=== PATIENT | female | born 2000 | race Two or more races ===

== ENCOUNTER 2025-07-06 22:54 | Emergency (ER) | payer MEDICAID, SELFPAY ==
[2025-07-06 22:57] VITALS: BMI 33.6
[2025-07-06 23:05] VITALS: BP 140/94; PULSE 80; RESP 16; TEMP 36.9; O2SAT 99
--- NOTE | 2025-07-06 23:43 | PD.EDRME ---
Rapid Medical Screening Exam RME Arrival date/time: 07/06/25 22:54 This is a case of 25-year-old female with no medical history came in in the emergency room due to headache and pelvic cramping patient is 3 weeks 1 para 0 Chief Complaint: General Adult/Misc Complain Time Seen by Provider: 07/06/25 23:41 Vital signs: Vital Signs Temperature 98.4 F 07/06/25 23:05 Pulse Rate 80 07/06/25 23:05 Respiratory Rate 16 07/06/25 23:05 Blood Pressure 140/94 H 07/06/25 23:05 Pulse Oximetry (%) 99 07/06/25 23:05 Oxygen Delivery Method Room Air 07/06/25 23:05 Exam: Neurological exam is normal awake alert oriented x 4 no focal deficit GCS 15/15 abdominal exam is benign nonsurgical no guarding no rebound no rigidity no tenderness Clinical Impression: Abdominal pain in headache
[2025-07-07 00:26] LABS: Basophils # (Auto) 0.0 Thou/mm3 (0.0-0.2); Basophils % (Auto) 1 % (0-2.5); Eosinophils # (Auto) 0.1 Thou/mm3 (0.0-0.5); Eosinophils % (Auto) 1 % (0-10); Hematocrit 37.7 % (36.0-46.0); Hemoglobin 12.5 g/dL (12.0-16.0); Immature Granulocytes Auto 0.01 Thou/mm3 (0.00-0.00); Lymphocytes # (Auto) 1.8 Thou/mm3 (1.0-4.8); Lymphocytes % (Auto) 28 % (10-50); Mean Corpuscular HGB Conc 33.2 g/dl (31.0-37.0); Mean Corpuscular Hemoglobin 28.6 pg (25.0-35.0); Mean Corpuscular Volume 86 fL (80-100); Monocytes # (Auto) 0.6 Thou/mm3 (0.0-0.8); Monocytes % (Auto) 9 % (0-12); Neutrophils # (Auto) 3.8 Thou/mm3 (1.8-7.7); Neutrophils % (Auto) 61 % (37-80); Nucleated Red Blood Cell # 0.00 Thou/mm3 (0.00-0.00); Nucleated Red Blood Cell % 0 /100 WBC (0); Platelet Count 180 Thou/mm3 (140-440); RDW Standard Deviation 40.4 fL (36.4-46.3); Red Blood Count 4.37 Miln/mm3 (4.00-5.20); White Blood Count 6.2 Thou/mm3 (3.6-11.0)
[2025-07-07 00:30] LABS: Collection Type, Urine Voided
[2025-07-07 00:40] LABS: Alanine Aminotransferase 18 U/L (10-49); Albumin, Serum 4.3 gm/dL (3.5-5.0); Albumin/Globulin Ratio 1.6 (1.2-2.2); Alkaline Phosphatase 44 U/L (46-116); Anion Gap 8 (7-16); Aspartate Amino Transferase 14 U/L (0-34); BUN/Creatinine Ratio 11 Ratio (12-20); Bilirubin,Total 0.3 mg/dL (0.3-1.2); Blood Urea Nitrogen 10 mg/dL (9-23); Calcium 9.8 mg/dL (8.3-10.6); Calcium (Corrected) 9.8 mg/dL (8.5-10.1); Carbon Dioxide 24.8 mMol/L (20.0-31.0); Chloride 106 mMol/L (98-107); Creatinine (Component) 0.9 mg/dL (0.6-1.3); Estimated Creatinine Clearance 114.6 mL/min (>60); Globulin 2.7 gm/dL (2.3-3.5); Glucose 95 mg/dL (74-106); Osmolality,Calculated 276 (275-295); Potassium 4.1 mMol/L (3.4-5.1); Sodium 139 mMol/L (136-145); Total Protein 7.0 gm/dL (5.7-8.2); eGFR > 60 See Note
[2025-07-07 00:42] LABS: Amorphous Crystals,Urine Present (Absent); Bacteria,Urine Rare; Bilirubin,Urine 1+ (Negative); Blood,Urine Negative (Negative); Clarity,Urine Turbid (Clear/Hazy); Color,Urine Yellow (Lt Yel-Yel); Glucose, Urine Negative (Negative); Ketones,Urine 1+ (Negative); Leukocyte Esterase,Urine Positive (Negative); Nitrite,Urine Negative (Negative); PH,Urine 6.0 (5.0-7.0); Protein,Urine 1+ (Neg - Trace); RBC,Urine 3 /hpf (0-3); Specific Gravity,Urine 1.035 (1.001-1.035); Squamous Epithelial Cell,Urine 35 /hpf (0-5); Urobilinogen,Urine 3.0 mg/dL (0.0-1.0); WBC,Urine 23 /hpf (0-5)
--- NOTE | 2025-07-07 00:43 | XR_ITS ---
Examination: Complete OB ultrasound, less than 14 weeks, transabdominal Date and time of exam: July 07, 2025, 0050 hours INDICATIONS: Pelvic cramping today with headache Technique: Obstetrical ultrasound images less than 14 weeks performed via transabdominal imaging Findings: A normal shaped single intrauterine gestation is present in the uterus. CRL 1.59 cm corresponds to 8 weeks 0 days gestational age Cardiac motion 164 bpm Ultrasonographic survey of visible and placental structures unremarkable. Amniotic fluid volume appears appropriate for this estimated gestational age. Right ovary 4.0 cm arterial flow Left ovary 3.6 cm arterial flow IMPRESSION: Viable intrauterine gestation 8 weeks 0 days.
[2025-07-07] MEDS: ONDANSETRON INJ 2 MG/ML INJ 2 ML 4 MG IVP (02:07)
[2025-07-07] MEDS: SODIUM CHLORIDE 0.9% 1000 ML 1,000 ML 999 ML IV (02:07)
[2025-07-07] MEDS: ACETAMINOPHEN 325 MG TABLET 650 MG PO (02:07)
--- NOTE | 2025-07-07 03:04 | PRELIM_ITS ---
Obstetric ultrasound (transabdominal ) with Doppler and wave Doppler spectral analysis. July 07, 2025 0050 hours Clinical history: vaginal bleeding Technique: Real-time ultrasound was performed using Duplex scanning including arterial inflow, venous outflow, color and spectral Doppler analysis of both ovaries. Comparison: None available at the time of this report. Findings: There is an intrauterine gestation (MSD 3.5 cm) with a single live fetus of mean gestational age 8 weeks and 0 days (CRL= 1.63 cm). cardiac activity is present at heart rate of 164 beats per minute. The yolk sac is demonstrated. The uterus measures 10.7 x 6.9 x 7.6 cm. The right ovary measures 4.0 x 2.5 x 3.0 cm and is unremarkable. The left ovary measures 3.6 x 1.6 x 2.1 cm and is unremarkable. Normal blood flow in the bilateral ovaries with normal wave Doppler spectral analysis. There is no free fluid in the pelvis. Impression: Intrauterine gestation with a single live fetus of mean gestational age 8 weeks and 0 days. No evidence of ovarian torsion. Report Electronically Signed By: Dereck Gatica 07/07/2025 3:03:34 AM [EST]
--- NOTE | 2025-07-07 03:19 | PD.EDPREG ---
ED OB Contraction Preg RMI/HPI General Chief complaint: General Adult/Misc Complain Stated complaint: HEADACHE,ABD CRAMPING Time Seen by Provider: 07/06/25 23:41 Source: patient Arrival date/time: This is a case of 25-year-old female with no medical history came into the emergency room due to headache and vomiting patient is 3 weeks 4 para 3 patient is also having pelvic cramping patient denies any vaginal bleeding vaginal discharge vaginal spotting denies any fever or chills denies any other symptom Limitations: no limitations RME / HPI RME / HPI Narrative: 07/06/25 22:54 This is a case of 25-year-old female with no medical history came in in the emergency room due to headache and pelvic cramping patient is 3 weeks 1 para 0 Exam: Neurological exam is normal awake alert oriented x 4 no focal deficit GCS 15/15 abdominal exam is benign nonsurgical no guarding no rebound no rigidity no tenderness Impression: Abdominal pain in headache Related Data Home Medications ?Medication ?Instructions ?Recorded ?Confirmed vits,calcium no.78-iron 1 tab PO DAILY 09/21/21 02/18/23 fumarate-folic acid 29 mg-1 mg tablet (Prenatabs FA) ferrous sulfate 325 mg (65 mg 325 mg PO DAILY 02/18/23 02/18/23 iron) tablet,delayed release Previous Rx's ?Medication ?Instructions ?Recorded epinephrine 0.3 mg/0.3 mL 0.3 ml subcut PRN PRN anaphylaxis 02/20/23 injection, auto-injector (EpiPen #2 ea 2-Keshawn) nitrofurantoin 100 mg PO BID #20 caps 07/07/25 monohydrate/macrocrystals 100 mg capsule (Macrobid) ondansetron 4 mg disintegrating 4 mg PO Q8H PRN nausea and 07/07/25 tablet vomiting #10 tabs Allergies Allergy/AdvReac Type Severity Reaction Status Date / Time sodium ferric gluconate Allergy Severe Swelling Verified 07/06/25 22:56 complex of Lip/Tongue/Throat Review of Systems Review of Systems Systems Reviewed: All systems reviewed, normal except as documented Past Medical History Past Medical History NEUROLOGIC: Negative Neurological Disorders or Seizures CARDIAC: Negative Cardiac Disorders, Congestive Heart Failure, Edema, Cellulitis or Varicose Veins RESPIRATORY: Negative Chronic Obstructive Pulmonary Disease (COPD), Tuberculosis or Sleep Apnea GASTROINTESTINAL: Negative Gastrointestinal Disorders or Hepatitis GENITOURINARY: Negative Genitourinary Disorders or Renal Disease REPRODUCTIVE: Positive Previous Pregnancies; Negative Endometriosis, Pelvic Inflammatory Disease or Uterine Prolapse MUSCULOSKELETAL: Negative Musculoskeletal Disorders ENDOCRINE: Negative Endocrine Disorders, Diabetes Mellitus Type 1 or Diabetes Mellitus Type 2 HEMATOLOGIC: Negative Blood Disorders OTHER HISTORY: Negative Hospitalization, Autoimmune Disease, Shingles, Falls, Blood Transfusions, Blood Transfusion Reaction, Anesthesia Reactions, Chemotherapy, Radiation Therapy, MRSA, Chicken Pox, Measles, Mumps or Cancer Family History FAMILY HISTORY: Positive Family Cancer (GRANDFATHER MATERNAL- [place]); Negative Family Psychiatric Problems, Family Respiratory Disorders, Family Cardiac Disorders, Family Gastrointestinal Problems, Family Surgery or Family Anesthesia Reaction Surgical History SURGICAL: Negative Pacemaker Social History SMOKING STATUS: Never smoker SECOND HAND EXPOSURE: No ED Exam General Limitations: Present no limitations General appearance: Present alert, in no apparent distress and other (Patient is awake alert oriented not in distress nontoxic looking well-hydrated well-nourished) Head Head exam: Present atraumatic, normocephalic and normal inspection Eye Eye exam: Present normal appearance, PERRL, EOMI and other (PERRL EOM intact normal conjunctiva no papilledema) ENT ENT exam: Present normal exam, normal oropharynx, mucous membranes moist and other (HEENT exam is normal and unremarkable) Neck Neck exam: Present normal inspection, full ROM, trachea midline and other (Negative for meningeal sign); Absent tenderness, meningismus, lymphadenopathy or thyromegaly Chest Chest inspection: Present normal inspection and symmetric chest wall rise; Absent tenderness Respiratory Respiratory exam: Present normal lung sounds bilaterally; Absent respiratory distress, wheezes, stridor, accessory muscle use or prolonged expiratory phase Cardiovascular Cardiovascular exam: Present regular rate, normal rhythm and normal heart sounds; Absent bradycardia, tachycardia, irregular rhythm, systolic murmur or diastolic murmur Abdominal Exam Abdominal exam: Present soft, normal bowel sounds and other (Gravid uterus); Absent distention, tenderness, guarding, rebound, rigidity, diminished bowel sounds, hyperactive bowel sounds, hypoactive bowel sounds or organomegaly Extremities Exam Extremities exam: Present normal inspection and full ROM Back Exam Back exam: Present normal inspection and full ROM Neurological Exam Neurological exam: Present alert, oriented X3, CN II-XII intact, normal gait, reflexes normal and other (Awake alert oriented x 4 no focal deficit GCS 15/15 steady gait memory intact no slurring speech no facial droop motor or sensory reflex were all normal in all extremities negative Babinski); Absent motor sensory deficit Psychiatric Psychiatric exam: Present normal affect and normal mood Skin Skin exam: Present warm, dry, intact, normal color and other (Excellent skin turgor) Course Quality Measures none Orders Category Date Time Status US OB <= 14 weeks fetus Stat Exams 07/07/25 00:43 Taken ABO/RH Type Stat Lab 07/06/25 23:43 Completed Beta HCG,Quantitative Stat Lab 07/06/25 23:43 Completed CBC Stat Lab 07/06/25 23:43 Completed CMP [Comprehensive Metabolic Panel] Stat Lab 07/06/25 23:43 Completed Urinalysis Stat Lab 07/07/25 00:15 Completed Acetaminophen Tab [Tylenol Tab] Med 07/07/25 02:00 Discontinued 650 mg PO X1 ONE Ondansetron Inj [Zofran Inj] Med 07/07/25 02:00 Discontinued 4 mg IVP X1 ONE Sodium Chloride 0.9% 1000 ml [Ns] 1,000 ml Med 07/07/25 02:00 Discontinued IV 999 mls/hr Vital Signs Vital signs: Vital Signs Temperature 98.4 F 07/06/25 23:05 Pulse Rate 80 07/06/25 23:05 Respiratory Rate 16 07/06/25 23:05 Blood Pressure 140/94 H 07/06/25 23:05 Pulse Oximetry (%) 99 07/06/25 23:05 Oxygen Delivery Method Room Air 07/06/25 23:05 Oxygen saturation is 99% in room air OB/Uterine Contractions MDM Narrative MDM Narrative:: This is a case of 25-year-old female with no medical history came into the emergency room due to headache and vomiting patient is 3 weeks 4 para 3 patient is also having pelvic cramping patient denies any vaginal bleeding vaginal discharge vaginal spotting denies any fever or chills denies any other symptom physical examination patient is awake alert oriented not in distress nontoxic looking well-hydrated well-nourished patient vital signs stable BP stable not tachycardic not tachypneic afebrile and nonhypoxic oxygen saturation is 99% in room air PERRL EOM intact normal conjunctiva no papilledema negative for meningeal sign thus patient is not having meningitis normal HEENT exam abdominal exam is benign no guarding no rebound no rigidity no tenderness gravid uterus normal active bowel sounds patient neurological exam is normal awake alert oriented x 4 no focal deficit GCS 15/15 steady gait memory intact CN II to XII is normal no slurring speech no facial droop motor or sensory reflex were all normal in all extremities negative Babinski blood test showed no leukocytosis no anemia kidney liver function is normal no electrolyte imbalance patient [id number] patient urinalysis showed WBC in the urine suggestive of urinary tract infectionm patient ultrasound showed 8 weeks with a heart tones of 160 based on my physical examination and history patient symptoms suggestive of hyperemesis gravidarum causing the patient having headache I do not think patient is having TIA CVA or brain at this point of time we cannot do any CT scan of the head due to patient neurological exam is normal thus there is no indication to perform this imaging patient was given a bolus of normal saline Zofran and Tylenol which improved and resolved the pain I have a long discussion with the patient regarding this matter patient will follow-up with PCP to be referred to OB for checkup and for further evaluation and treatment of her hyperemesis gravidarum the importance of hydration was advised Tylenol only for pain Zofran for nausea vomiting for any worsening symptoms or any emergent concern return to the emergency room immediately or call 911 Patient was discharged with comfortable condition walking with stable gait. Patient verbalized no further complains explained diagnosis and answered patient question. Patient is comfortable with the proposed management plan including the need to follow up with his/her primary care physician and any specialist if applicable Discussed patient for any urgent condition or worsening sx, He/She needed to go to emergency room immediately or call 911. Patient acknowledge the responsibility to follow up as instructed and to monitor her/his symptoms. For any persistence of the symptoms for more than 3-5 days return precaution advised. Discussed the result of the test and was given printed discharge instruction Patient data External records reviewed:: [facility] previous records Clinical information provided by:: patient Social determinants that could affect healthcare access:: none Patient has the following chronic illnesses:: None How is presenting disease/condition affected by chronic disease/condition?: no chronic disease Evaluation data The following diagnostics were reviewed and interpreted by me:: lab results and radiology exam(s) Lab and/or radiology exams considered but not ordered:: Reviewed Interpretation Summary: Reviewed Medications / Prescriptions Medications or Prescriptions considered but not ordered:: Give Medication administrations:: Medication Administration History Discontinued Medications Acetaminophen (Acetaminophen 325 Mg Tablet) 650 mg PO X1 ONE Stop: 07/07/25 02:01 Last Admin: 07/07/25 02:07 Dose: 650 mg Documented By: SANDRA Sodium Chloride (Ns) 1,000 mls @ 999 mls/hr IV .Q1H1M ONE Stop: 07/07/25 03:00 Last Infusion: 07/07/25 03:10 Dose: Infused Documented By: Admin: 07/07/25 02:07 Dose: 999 mls/hr Documented By: SANDRA Ondansetron HCl (Ondansetron Inj 2 Mg/Ml Inj 2 Ml) 4 mg IVP X1 ONE; Protocol Stop: 07/07/25 02:01 Last Admin: 07/07/25 02:07 Dose: 4 mg Documented By: SANDRA Given Consultations Consultation(s) initiated? (list below): No Diagnosis OB Contractions Differential Diagnosis: other (Hyperemesis gravidarum urinary tract infection in ) Most likely diagnosis given after review of the tests above:: Hyperemesis gravidarum urinary tract infection in Admission Indicated Admission indicated?: not indicated Explain why admission is indicated or not indicated:: Not indicated Admission Request Was there a request for admission?: No Admission Attestation Admission request attestation: Not indicated Disposition Plan Disposition Plan: Discharge Discharge Attestation Discharge Attestation: The patient and all family members were given an opportunity to ask questions and understood the discharge instructions. Discharge instructions specifically effects, indications for sooner follow up or return to the emergency department, and the expected course of current diagnosis. Patient condition: Stable Discharge Plan Plan Patient Disposition: HOME (Self Care) Patient condition on transfer: Stable Prescriptions/Referrals Prescriptions/Med Rec: New ondansetron 4 mg tablet,disintegrating 4 mg PO Q8H PRN (Reason: nausea and vomiting) Qty: 10 0RF nitrofurantoin monohyd/m-cryst [Macrobid] 100 mg capsule 100 mg PO BID Qty: 20 0RF Rx Instructions: must administer with a meal/food No Action Prenatabs FA 29-1 mg tablet 1 tab PO DAILY Patient Comments: Take 1 tablet by mouth once a day ferrous sulfate 325 mg (65 mg iron) tablet,delayed release (DR/EC) 325 mg PO DAILY Patient Comments: TAKE 1 TABLET BY MOUTH EVERY DAY FOR 30 DAYS epinephrine [EpiPen 2-Keshawn] 0.3 mg/0.3 mL auto-injector 0.3 ml subcut PRN PRN (Reason: anaphylaxis) Qty: 2 1RF Referrals: No Primary/Family,Physician [Primary Care Provider] - In 1 week Problem List Clinical Impression: Hyperemesis gravidarum, Pelvic pain during , Urinary tract infection, Headache Patient/Caregiver Discharge Instructions Education Materials: Urinary Tract Infections in Women, Self-Care for Headaches, ED Abdominal Pain, Early , ED Hyperemesis Gravidarum Additional Instructions: It is very important to see an OB associate professor of literature for further evaluation and treatment of your hyperemesis gravidarum and for checkup follow-up with your primary care physician in 2 days for reevaluation and to to be referred to OB associate professor of literature for checkup recurrence persistent worsening symptoms or any emergent concern call 911 or go to the nearest emergency room you can only take Tylenol for your headache keep hydrated Pedialyte for vomiting and for hydration return to the emergency room if there is vaginal bleeding vaginal discharge vaginal spotting persistent abdominal pain fever or chills Print Language: Syriac Stand Alone Forms: [employer] Award Info., Patient Portal Info Letter PA/VENEER SANDER Supervising Physician PA/VENEER SANDER Supervising Physician: Dr. Cali Maynard
== END 2025-07-07 03:27 | disposition home or self-care (01) ==
PROVIDERS: Nurse Practitioner Family; Emergency Provider Emergency Medicine
DX: O21.0 Mild hyperemesis gravidarum (principal); O23.41 Unspecified infection of urinary tract in pregnancy, first trimester; O99.891 Other specified diseases and conditions complicating pregnancy; R51.9 Headache, unspecified; Z3A.08 8 weeks gestation of pregnancy
CPT/HCPCS: 36415; 76801; 80053; 81001; 84702; 85025; 86900; 86901; 96374; 99284; J2405; J7030; A9270